=== PATIENT | male | born 1960 | race Caucasian/White ===

== ENCOUNTER 2019-11-19 11:24 | Emergency (ER) | payer OTHER ==
[2019-11-19 11:57] VITALS: BP 116/76
--- NOTE | 2019-11-19 11:58 | Event Note ---
ED Screening Note Date of service: 11/19/19 ED Screening Note: This initial assessment/diagnostic orders/clinical plan/treatment(s) is/are subject to change based on patients health status, clinical progression and re- assessment by fellow clinical providers in the ED. Further treatment and workup at subsequent clinical providers discretion. Patient/guardian urged not to elope from the ED as their condition may be serious if not clinically assessed and managed. Initial orders include:
[2019-11-19 12:58] LABS: Hematocrit 39.3 % (35.5-45.6); Hemoglobin 13.7 gm/dl (11.8-15.2); Mean Corpuscular HGB Conc 35 % (32-34); Mean Corpuscular Volume 85 fl (84-94); Platelet Count 194 K/mm3 (140-440); Red Blood Count 4.64 M/mm3 (3.65-5.03); Red Cell Distribution Width 14.5 % (13.2-15.2)
[2019-11-19 13:14] LABS: INR 0.89 (0.87-1.13)
[2019-11-19 13:15] LABS: Partial Thromboplastin Time 37.1 Sec. (24.2-36.6)
--- NOTE | 2019-11-19 13:41 | Cat Scan Report ---
CT HEAD WITHOUT CONTRAST INDICATION : Headache. TECHNIQUE: Axial, coronal and sagittal CT imaging was performed from the skull apex through the skul l base without contrast. All CT scans at this location are performed using CT dose reduction for ALA RA by means of automated exposure control. COMPARISON: None available. FINDINGS: PARENCHYMA: No mass, midline shift, hemorrhage, extraaxial collection or acute territorial infarctio n. VENTRICLES: Symmetric and normal in size. SOFT TISSUES: Soft tissues including the orbits appear normal. BONES: No acute osseous abnormality. SINUSES: No significant abnormality. ADDITIONAL FINDINGS: None. IMPRESSION: No acute intracranial abnormality. Signer Name: Mustapha Parker MD Signed: 11/19/2019 1:37 PM Workstation Name: [id number]
[2019-11-19 13:48] LABS: BUN/Creatinine Ratio 10; Blood Urea Nitrogen 12 mg/dL (9-20); Calcium 9.1 mg/dL (8.4-10.2); Hemolysis Index 5
[2019-11-19 13:50] LABS: Alanine Aminotransferase 21 units/L (7-56); Albumin 4.1 g/dL (3.9-5)
[2019-11-19 14:15] LABS: Bilirubin,Direct < 0.2 mg/dL (0-0.2)
[2019-11-19 14:33] LABS: Basophils % (Manual) 0 % (0.0-1.8); Total Cells Counted 100
[2019-11-19 14:34] LABS: Anisocytosis Few; Ovalocytes Rare; Platelet Estimate Consistent w Auto
== END 2019-11-19 15:55 | disposition left against medical advice (07) ==
LOC: ED 11:24
DX: R51 Headache (principal); Z53.21 Procedure and treatment not carried out due to patient leaving prior to being seen by health care provider
CPT/HCPCS: 36415; 70450; 80048; 80076; 85007; 85025; 85610; 85730